=== PATIENT | male | born 1985 | race Caucasian/White ===

== ENCOUNTER 2016-10-14 12:00 | Emergency (ER) | payer SELFPAY ==
[2016-10-14 12:09] VITALS: BP 125/69
--- NOTE | 2016-10-14 12:18 | UC ---
Back Pain HPI - HPI Summary HPI Summary: 30 Y/O presents with C/O R shoulder pain and lower back pain after moving furniture. Denies trauma. Tenderness on palpation to lower back. No bruising or erythema. Pain on palpation to R shoulder. Full range of motion demonstrated by pt. States has tried ice at home. Refusing x-ray, does not want medication other than "V[place]". - History of Current Complaint Chief Complaint: UCBackPain Stated Complaint: BACK AND SHOULDER INJURY Time Seen by Provider: 10/14/16 12:11 Hx Obtained From: Patient Onset/Duration: Gradual Onset, Lasting Days Timing: Constant Severity Initially: Severe Severity Currently: Severe Pain Intensity: 10 Pain Scale Used: 0-10 Numeric Back Pain: Is Discrete @ - Lumbar area Character: Sharp, Spasmodic Aggravating: Movement Alleviating: Nothing Associated Signs And Symptoms: Positive: Negative - Risk Factors AAA Risk Factors: Negative TAD Risk Factors: Negative Cauda Equina Risk Factors: Negative Epidural Abscess Risk Factors: Negative - Allergies/Home Medications Allergies/Adverse Reactions: Allergies Allergy/AdvReac Type Severity Reaction Status Date / Time Bee Venom Allergy Anaphylatic Verified 10/14/16 12:03 Shock Ibuprofen Allergy Abdominal Verified 10/14/16 12:03 Pain Home Medications: Home Medications NK [No Home Medications Reported] 10/14/16 [History Confirmed 10/14/16] PMH/Surg Hx/FS Hx/Imm Hx Previously Healthy: Yes Other History Of: Negative For: HIV, Hepatitis B, Hepatitis C, Anticoagulant Therapy - Surgical History Surgical History: None - Family History Known Family History: Positive: Cardiac Disease, Hypertension, Diabetes - Social History Alcohol Use: None Substance Use Type: None Smoking Status (MU): Heavy Every Day Tobacco Smoker Amount Used/How Often: 2 PPD Have You Smoked in the Last Year: Yes Household Exposure Type: Cigarettes - Immunization History Most Recent Influenza Vaccination: never Most Recent Tetanus Shot: UTD Review of Systems Constitutional: Negative Skin: Negative Eyes: Negative ENT: Negative Respiratory: Negative Cardiovascular: Negative Gastrointestinal: Negative Genitourinary: Negative Motor: Negative Neurovascular: Negative Musculoskeletal: Negative - low back, Myalgia Neurological: Negative Psychological: Negative All Other Systems Reviewed And Are Negative: Yes Physical Exam Triage Information Reviewed: Yes Appearance: Well-Appearing Vital Signs: Initial Vital Signs Temp 98.7 F 10/14/16 12:04 Pulse 87 10/14/16 12:04 Resp 16 10/14/16 12:04 BP 125/69 10/14/16 12:04 Pulse Ox 100 10/14/16 12:04 Vital Signs Reviewed: Yes Eye Exam: Normal Neck exam: Normal Neck: Positive: Supple Respiratory Exam: Normal Respiratory: Positive: Lungs clear Cardiovascular Exam: Normal Cardiovascular: Positive: RRR Abdominal Exam: Normal Musculoskeletal Exam: Normal Musculoskeletal: Positive: No Edema Neurological Exam: Normal Psychological Exam: Normal Skin Exam: Normal Back Pain Course/Dx - Differential Dx/Diagnosis Differential Diagnosis/HQI/PQRI: Strain, Sprain Provider Diagnoses: back strain Discharge - Discharge Plan Condition: Stable Disposition: HOME Patient Education Materials: Low Back Strain (ED), Shoulder Sprain (ED) Additional Instructions: You have refused x-ray and muscle relaxers in the urgent care. Please go to ER for pain that does not respond to cold pack or tylenol. You rate your pain 12/ 10 and may need further diagnostic testing to determine cause.
== END 2016-10-14 12:49 | disposition home or self-care (01) ==
LOC: UCEAST 12:00
DX: S39.012A Strain of muscle, fascia and tendon of lower back, initial encounter (principal); X50.0XXA Overexertion from strenuous movement or load, initial encounter; Z88.6 Allergy status to analgesic agent; Z91.030 Bee allergy status
CPT/HCPCS: 99212; G0463